=== PATIENT | male | born 1950 | race Caucasian/White ===

== ENCOUNTER 2019-07-16 12:54 | Outpatient (CLI) | payer MEDICARE ==
--- NOTE | 2019-07-16 14:00 | RAD ---
CHEST TWO VIEWS: HISTORY: Dyspnea. COMPARISON: 05/19/2019 FINDINGS: Heart size is within normal limits. Lungs are clear of acute process. No confluent pneumonia, overt e terri or pleural effusion. IMPRESSION: 1. No acute intrathoracic disease. 2. Atherosclerosis of the aorta. POS: OFF
== END 2019-07-16 12:55 | disposition home or self-care (01) ==
LOC: RAD 12:54
PROVIDERS: ATTEND Internal Medicine Critical Care Medicine
DX: R06.00 Dyspnea, unspecified (principal); I70.0 Atherosclerosis of aorta
CPT/HCPCS: 71046

== ENCOUNTER 2021-03-06 12:40 | Outpatient (CLI) | payer MEDICARE ==
[2021-03-07 12:37] LABS: SARS-CoV-2 PCR by NAA Not Detected (NotDetected)
== END 2021-03-06 12:41 | disposition home or self-care (01) ==
LOC: LABBT 12:40
PROVIDERS: ATTEND Family Medicine
DX: Z01.812 Encounter for preprocedural laboratory examination (principal); Z20.822 Contact with and (suspected) exposure to COVID-19
CPT/HCPCS: U0003; U0005

== ENCOUNTER 2021-03-08 12:19 | Outpatient (CLI) | payer MEDICARE | END 2021-03-08 12:20 | disposition home or self-care (01) | PROVIDERS: ATTEND Internal Medicine | DX: R13.10 Dysphagia, unspecified (principal); R63.3 Feeding difficulties | CPT/HCPCS: 74230 ==

== ENCOUNTER 2023-07-25 06:36 | Observation (INO) | payer MEDICARE ==
[2023-07-04 15:29] LABS: Hematocrit 39.8 % (38.8-50.0); Hemoglobin 13.3 g/dL (13.5-17.5); Mean Corpuscular HGB CONC 33.4 g/dL (32.0-36.0); Mean Corpuscular Hemoglobin 31.7 pg (27.0-33.0); Mean Corpuscular Volume 94.8 fl (81.2-95.1); Mean Platelet Volume 10.7 fl (7.4-10.4); Platelet Count 227 10x3/uL (150-450); RBC Distribution Width 13.1 % (11.5-14.5); White Blood Cell (WBC) Count 11.6 10x3/uL (3.5-10.5)
[2023-07-04 15:58] LABS: Anion Gap 14 mmol/L (10-20); BUN (Urea Nitrogen) 16 mg/dL (8.4-25.7); Calc. Creatinine Clearance 46 mL/min (70-130); Calcium 11.1 mg/dL (7.8-10.44); Carbon Dioxide 22 mmol/L (23-31); Chloride 108 mmol/L (98-107); Estimated GFR 40; Glucose 82 mg/dL (83-110); Potassium 4.3 mmol/L (3.5-5.1); Sodium 140 mmol/L (136-145)
[2023-07-04 16:42] LABS: INR-International Normal Ratio 1.1; Prothrombin Time 11.6 sec (9.5-12.1)
[2023-07-25 07:45] LABS: #Eosinphils 0.1 thou/uL (0.0-0.7); #Monocytes 0.6 thou/uL (0.11-0.59); #Neutrophils 4.8 thou/uL (1.40-6.50); %Basophils 0.6 % (0.0-1.0); %Eosinophils 1.7 % (0.0-10.0); %Lymphocytes 19.7 % (21.0-51.0); %Neutrophils 68.7 % (42.0-75.0); Hematocrit 37.9 % (42.0-52.0); Hemoglobin 12.5 g/dL (14.0-18.0); Mean Corpuscular Hemoglobin 32.2 pg (27.0-31.0); Mean Corpuscular Volume 97.7 fl (78.0-98.0); Platelet Count 198 10x3/uL (130-400); RBC Distribution Width 13.9 % (11.5-14.5); Red Blood Cell (RBC) Count 3.88 mill/uL (4.70-6.10)
[2023-07-25 07:58] LABS: INR-International Normal Ratio 1.3; Prothrombin Time 16.7 sec (12.0-14.7)
[2023-07-25 08:06] LABS: Anion Gap 12 mmol/L (10-20); BUN (Urea Nitrogen) 12 mg/dL (8.4-25.7); Calc. Creatinine Clearance 48 mL/min (70-130); Calcium 11.2 mg/dL (7.8-10.44); Carbon Dioxide 23 mmol/L (23-31); Chloride 113 mmol/L (98-107); Estimated GFR 42; Glucose 90 mg/dL (83-110); Potassium 4.2 mmol/L (3.5-5.1); Sodium 144 mmol/L (136-145)
[2023-07-25] MEDS ORDERED: Phenylephrine 10 MG/ML VIAL ONE (09:06)
[2023-07-25] MEDS ORDERED: Rocuronium Bromide 10 MG/ML (10ML VIAL) ONE (09:06)
[2023-07-25] MEDS ORDERED: Lidocaine 1% PF 5 ML VIAL ONE (09:06)
[2023-07-25] MEDS ORDERED: PROPOFOL 20 ML ONE (09:06)
[2023-07-25] MEDS ORDERED: fentaNYL 50 mcg/mL 1 mL Vial ONE ×2 (09:06→13:25)
[2023-07-25] MEDS ORDERED: Protamine Sulfate 50 MG/5 ML VIAL ONE (09:14)
[2023-07-25] MEDS ORDERED: Heparin 10,000 UNITS/ 10 ML VIAL ONE (09:15)
[2023-07-25] MEDS ORDERED: Heparin 25,000 units/D5W 500 ML ONE (09:15)
[2023-07-25] MEDS ORDERED: Ondansetron HCl/PF 4 MG/2 ML Vial IVP PRN ×2 (11:55→16:30)
[2023-07-25] MEDS ORDERED: Promethazine HCl 25 MG/ML VIAL IM PRN ×2 (11:55→16:30)
[2023-07-25] MEDS ORDERED: Acetaminophen 325 MG TAB PO PRN (16:16)
[2023-07-25] MEDS: HYDROcodone/Acetaminophen 5/325 mg Tablet PO PRN (16:32)
[2023-07-25 16:53] VITALS: BMI 29.6
[2023-07-25] MEDS ORDERED: dilTIAZem CD 120 MG CAP PO SCH (21:00)
[2023-07-25] MEDS ORDERED: Atorvastatin Calcium 40 MG TAB PO SCH (21:00)
[2023-07-25] MEDS ORDERED: Tamsulosin HCl 0.4 MG CAP PO SCH (21:00)
[2023-07-25] MEDS ORDERED: Ipratropium Bromide 0.06% Nasal Inhaler 15ml EA NARE SCH (21:00)
[2023-07-25] MEDS ORDERED: Divalproex Sodium 500 MG ER.TAB PO SCH (21:00)
[2023-07-25] MEDS ORDERED: Lorazepam 1 MG TAB PO SCH (21:00)
[2023-07-25] MEDS: OLANZapine 5 MG TAB PO SCH (21:32)
[2023-07-25] MEDS: busPIRone HCl 10 MG TAB PO SCH (21:32)
[2023-07-25] MEDS: Apixaban 5 MG TAB PO SCH (21:32)
[2023-07-26] MEDS: HYDROcodone/Acetaminophen 5/325 mg Tablet PO PRN (06:24)
[2023-07-26 08:07] VITALS: BP 119/71; TEMP 97.1
[2023-07-26] MEDS: OLANZapine 5 MG TAB PO SCH (09:05)
[2023-07-26] MEDS: busPIRone HCl 10 MG TAB PO SCH (09:06)
[2023-07-26] MEDS: Apixaban 5 MG TAB PO SCH (09:07)
== END 2023-07-26 12:30 | disposition home or self-care (01) ==
LOC: SDC 06:36 → 2NO 08:02
PROVIDERS: ADMIT Internal Medicine Cardiovascular Disease; ATTEND Internal Medicine Cardiovascular Disease
PROC: 4A027FZ Measurement of Cardiac Rhythm, Via Natural or Artificial Opening (ICD-10-PCS; principal; 2023-07-25)
PROC: 4A0274Z Measurement of Cardiac Electrical Activity, Via Natural or Artificial Opening (ICD-10-PCS; 2023-07-25)
DX: I48.19 Other persistent atrial fibrillation (principal); Z79.01 Long term (current) use of anticoagulants; Z79.899 Other long term (current) drug therapy
CPT/HCPCS: 80048 ×2; 85025; 85027; 85347 ×2; 85610 ×2; 93005 ×2; 93312; 93656; 93657; C1732; C1759; C1760; C1894 ×5; C2630; J3010; 93010; J1644; J2371; J2704; J2720